=== PATIENT | female | born 2000 | race Two or more races ===

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

== ENCOUNTER 2024-02-27 08:00 | Emergency (ER) | payer MEDICAID ==
[~2024-02-27] VITALS: Ht 175.3 cm; Wt 161.5 kg
[2024-02-27 08:31] VITALS: BP 118/74; PULSE 86; RESP 18; TEMP 99.1; O2SAT 100
[2024-02-27] MEDS ORDERED: CYCL-837 PO (08:45)
[2024-02-27] MEDS ORDERED: LIDO5DIS21 TOP (08:45)
[2024-02-27] MEDS ORDERED: NAPR-746 PO (08:45)
[2024-02-27] MEDS: methylPREDNISolone SOD SUCC 125 MG/2 ML VL IM ONE (08:52)
[2024-02-27] MEDS: KETOROLAC TROMETH 30 MG/ML 1ML VIAL IM ONE (08:52)
[2024-02-27 09:36] LABS: Urine Bacteria None Seen /hpf (None Seen)
[2024-02-27 10:01] LABS: Urine Blood Negative /uL (Negative); Urine Clarity Turbid (Clear); Urine Color Light-Yellow (Yellow); Urine Mucus FEW (None Seen); Urine Protein, UAD TRACE (Negative); Urine Specific Gravity 1.026 (1.001-1.035); Urine Urobilinogen Normal (Negative); Urine WBC 10 /hpf (0 - 5); Urine pH 6.5 (5.0-9.0)
== END 2024-02-27 09:04 | disposition home or self-care (01) ==
LOC: ER 08:02
DX: M54.50 Low back pain, unspecified (principal); Z79.899 Other long term (current) drug therapy
CPT/HCPCS: 81001; 96372; 99284; J1885; J2919